=== PATIENT | male | born 1990 | race Caucasian/White ===

== ENCOUNTER 2019-06-09 06:31 | Emergency (ER) | payer OTHER, SELFPAY ==
[2019-06-09 06:35] VITALS: BMI 33.0
[2019-06-09 06:37] VITALS: BP 128/63; PULSE 127; RESP 20; TEMP 38.2; O2SAT 91
--- NOTE | 2019-06-09 07:00 | XR_ITS ---
WS: [id number] Portable AP upright chest, 06/09/2019 Clinical Data: cough and dyspnea Comparison: None. Findings: No nodules, masses or effusions are seen. The heart is normal. The pulmonary vascularity is not increased. No pneumonia or pneumothorax is seen. XR/XR chest 1V portable [id number] Impression: Negative chest.
[2019-06-09 07:15] LABS: Basophils % 0.4 %; Eosinophils % 0.4 %; Hematocrit 39.1 % (42.0-52.0); Hemoglobin 12.8 g/dL (11.7-16.6); Lymphocytes # 0.5 10^3/uL (0.8-4.8); Lymphocytes % 9.2 %; Mean Corpuscular HGB Conc 32.7 g/dL (30.0-36.0); Mean Corpuscular Hemoglobin 28.5 pg (28.0-34.0); Mean Corpuscular Volume 87.1 fL (80-94); Monocytes # 0.4 10^3/uL (0.2-0.9); Neutrophils % 80.6 %; Nucleated Red Blood Cells % 0 %; Platelet Count 184 10^3/cmm (130-400); Red Blood Count 4.49 10^6/uL (4.1-5.3); Red Cell Distribution Width 12.8 % (12.1-15.1)
--- NOTE | 2019-06-09 07:15 | ED_ITS ---
HPI - Fever General: Chief Complaint: Fever Stated Complaint: fever/sob Time Seen by Provider: 06/09/19 07:00 Review of Systems General: Reports: 10 or more systems reviewed and unremarkable except in HPI and below Resp: Reports: shortness of breath and non-productive cough PFSH ED PFSH: Social History Smoking and tobacco status: current some day smoker Physical Exam Const: COMMON NORMALS: oriented x3 and alert GENERAL APPEARANCE: ill appearing Neck/C-Spine: COMMON NORMALS: no JVD Resp: COMMON NORMALS: normal respiratory effort, no retractions, no use of accessory muscles, clear to auscultation bilaterally and percussion normal AUSCULTATION: clear to auscultation bilaterally PERCUSSION: percussion normal Cardio: COMMON NORMALS: no JVD, regular rate, regular rhythm, S1 normal heart sound, S2 normal heart sound and no murmurs RATE: regular rate RHYTHM: regular rhythm HEART SOUNDS: S1 normal and S2 normal GI: COMMON NORMALS: normal to inspection, nondistended, normoactive bowel sounds Extremity: COMMON NORMALS: normal to inspection, full ROM and normal capillary refill Neuro: COMMON NORMALS: oriented x3 SENSORIUM/ORIENTATION: Yes alert Course Vital Signs: Vital signs: Vital Signs Temperature 100.7 F H 06/09/19 06:37 Pulse Rate 127 H 06/09/19 06:37 Respiratory Rate 20 H 06/09/19 06:37 Blood Pressure 128/63 06/09/19 06:37 Pulse Oximetry 91 06/09/19 06:37 MDM - Fever Lab Data: Labs: Lab Results 06/09/19 06/09/19 06/09/19 Range/Units 07:10 07:10 07:10 WBC 5.0 (4.0-10.0) 10^3/ uL RBC 4.49 (4.1-5.3) 10^6/u L Hgb 12.8 (11.7-16.6) g/dL Hct 39.1 L (42.0-52.0) % MCV 87.1 (80-94) fL MCH 28.5 (28.0-34.0) pg MCHC 32.7 (30.0-36.0) g/dL RDW 12.8 (12.1-15.1) % Plt Count 184 (130-400) 10^3/c mm MPV 10.0 (7.4-10.4) fL Neut % (Auto) 80.6 % Lymph % (Auto) 9.2 % [place] % (Auto) 8.0 % Eos % (Auto) 0.4 % Baso % (Auto) 0.4 % Neut # (Auto) 4.0 (1.8-7.7) 10^3/u L Lymph # (Auto) 0.5 L (0.8-4.8) 10^3/u L [place] # (Auto) 0.4 (0.2-0.9) 10^3/u L Eos # (Auto) 0.0 (0.0-0.8) 10^3/u L Baso # (Auto) 0.0 (0.0-0.1) 10^3/u L Nucleated RBC % (a uto) 0 % Nucleated RBCs # 0.0 /100WBC D-Dimer 1.12 H (0-0.59) ug/mIFE U Sodium 136 (136-145) mmol/L Potassium 3.6 (3.5-5.1) mmol/L Chloride 100 (98-107) mmol/L Carbon Dioxide 22 (22-29) mmol/L Anion Gap 17.6 (5-19) BUN 12 (6-20) mg/dL Creatinine 1.0 (0.7-1.2) mg/dL GFR Calculation 87.7 L (90-130) mL/min Glucose 117 H (65-115) mg/dL Lactate (0.5-2.2) mmol/L Calcium 9.5 (8.5-10.5) mg/dL Total Bilirubin 0.2 (0.15-1.2) mg/dL AST 76 H (0-40) U/L ALT 96 H (0-41) U/L Alkaline Phosphata se 84 (40-130) IU/L Total Protein 7.7 (6.6-8.7) g/dL Albumin 4.2 (3.5-5.2) g/dL Globulin 3.5 (1.3-4.6) g/dL Influenza Type A A g (Negative) POC Influenza B Ag (Negative) 06/09/19 06/09/19 Range/Units 07:10 08:05 WBC (4.0-10.0) 10^3/ uL RBC (4.1-5.3) 10^6/u L Hgb (11.7-16.6) g/dL Hct (42.0-52.0) % MCV (80-94) fL MCH (28.0-34.0) pg MCHC (30.0-36.0) g/dL RDW (12.1-15.1) % Plt Count (130-400) 10^3/c mm MPV (7.4-10.4) fL Neut % (Auto) % Lymph % (Auto) % [place] % (Auto) % Eos % (Auto) % Baso % (Auto) % Neut # (Auto) (1.8-7.7) 10^3/u L Lymph # (Auto) (0.8-4.8) 10^3/u L [place] # (Auto) (0.2-0.9) 10^3/u L Eos # (Auto) (0.0-0.8) 10^3/u L Baso # (Auto) (0.0-0.1) 10^3/u L Nucleated RBC % (a uto) % Nucleated RBCs # /100WBC D-Dimer (0-0.59) ug/mIFE U Sodium (136-145) mmol/L Potassium (3.5-5.1) mmol/L Chloride (98-107) mmol/L Carbon Dioxide (22-29) mmol/L Anion Gap (5-19) BUN (6-20) mg/dL Creatinine (0.7-1.2) mg/dL GFR Calculation (90-130) mL/min Glucose (65-115) mg/dL Lactate 0.7 (0.5-2.2) mmol/L Calcium (8.5-10.5) mg/dL Total Bilirubin (0.15-1.2) mg/dL AST (0-40) U/L ALT (0-41) U/L Alkaline Phosphata se (40-130) IU/L Total Protein (6.6-8.7) g/dL Albumin (3.5-5.2) g/dL Globulin (1.3-4.6) g/dL Influenza Type A A g Positive H (Negative) POC Influenza B Ag Negative (Negative) Coding Level of Care Code ED Supervisor [employer] for Chg Fwd Exam Detailed
[2019-06-09 07:30] LABS: Alanine Aminotransferase 96 U/L (0-41); Albumin Level 4.2 g/dL (3.5-5.2); Alkaline Phosphatase 84 IU/L (40-130); Anion Gap 17.6 (5-19); Aspartate Amino Transferase 76 U/L (0-40); Blood Urea Nitrogen 12 mg/dL (6-20); Calcium 9.5 mg/dL (8.5-10.5); Carbon Dioxide 22 mmol/L (22-29); Chloride 100 mmol/L (98-107); Creatinine Clr Calc Pharmacy 130.6714; Globulin 3.5 g/dL (1.3-4.6); Glomerular Filtration Rate 87.7 mL/min (90-130); Glucose 117 mg/dL (65-115); Potassium 3.6 mmol/L (3.5-5.1); Sodium 136 mmol/L (136-145); Total Bilirubin 0.2 mg/dL (0.15-1.2); Total Protein 7.7 g/dL (6.6-8.7)
[2019-06-09 07:31] LABS: Lactate (Lactic Acid level) 0.7 mmol/L (0.5-2.2)
[2019-06-09 07:38] LABS: D Dimer 1.12 ug/mIFEU (0-0.59)
[2019-06-09 08:32] LABS: Influenza A by IFA Positive (Negative)
[2019-06-09 08:33] LABS: Influenza B by IFA Negative (Negative)
[2019-06-09] MEDS: sodium chloride 0.9% 1,000 ML 999 ML IV (08:39)
[2019-06-09 09:32] VITALS: BP 108/72; PULSE 114; TEMP 37.1; O2SAT 95
== END 2019-06-09 09:42 | disposition home or self-care (01) ==
PROVIDERS: Emergency Provider Family Medicine; Family Provider General Practice
DX: R50.9 Fever, unspecified (principal); R05 Cough; R06.02 Shortness of breath; F17.200 Nicotine dependence, unspecified, uncomplicated
CPT/HCPCS: 36415; 71045; 80053; 83605; 85025; 85378; 87804; 96360; 99283; J7030

== ENCOUNTER 2019-06-22 10:23 | Outpatient (CLI) | payer OTHER, SELFPAY ==
--- NOTE | 2019-06-22 | US_ITS ---
WS: [id number] ULTRASOUND ABDOMEN LIMITED CLINICAL INFORMATION: ELEVATED LIVER ENZYMES COMPARISON: None. FINDINGS: Liver Size: Enlarged Liver measures 18.3 x 16.4 cm Echogenicity: Normal. Surface nodularity: None. Mass (size and location): None. Bile ducts Intrahepatic ducts: Normal. Common bile duct diameter: 2.3 mm. Gallbladder Contracted No cholelithiasis or gallbladder wall thickening. Pancreas Normal as visualized. Right kidney: Normal. Hydronephrosis: None. Size: 11.5 cm x 4.4 cm x 5.5 cm. Abdominal aorta and IVC Visualized portions are normal. Ascites: None. US/US abdomen limited [id number] IMPRESSION: 1. Liver is enlarged measuring 18.3 x 16.4 cm 2. Gallbladder is normal. No cholelithiasis. Normal common bile duct. 3. No hydronephrosis in right kidney.
== END 2019-06-22 10:24 | disposition home or self-care (01) ==
LOC: RADOUTREAD 11:00
PROVIDERS: Family Provider General Practice; Visit Provider Nurse Practitioner Family
DX: Z01.89 Encounter for other specified special examinations (principal)

== ENCOUNTER → 2023-04-20 15:09 | Outpatient (BNVA) | payer OTHER, SELFPAY | PROVIDERS: Family Provider General Practice; Visit Provider Registered Nurse Neonatal Intensive Care | DX: J02.9 Acute pharyngitis, unspecified (principal) | CPT/HCPCS: 87880 ==